=== PATIENT | female | born 1955 | race Caucasian/White ===

== ENCOUNTER 2018-05-06 14:12 | Emergency (ER) ==
[2018-05-06 14:16] VITALS: BP 124/76; TEMP 98.8; BMI 27.3
--- NOTE | 2018-05-06 15:58 | ED.PDOC ---
General ED Provider: Dr. ABDIFATAH RAE Chief Complaint: Tooth Problem Stated Complaint: Pain Rt side of jaw. Patient states she fractured a tooth 2 weeks ago. Now there is swelling to rt lower jaw since last pm. She called dentist and was advised to go to er due to office closed until holiday vacation.has appt to see dentist on tue next week Time Seen by Physician: 15:40 Mode of Arrival: Walk-In Information Source: Patient Exam Limitations: No limitations Primary Care Provider: ESPERANZA NOE Nursing and Triage Documentation Reviewed and Agree: Yes Does patient meet sepsis criteria?: No System Inflammatory Response Syndrome: Not Applicable Sepsis Protocol: For patient's 13 years and over: Temp is 96.8 and below OR 101 and greater Pulse >90 BPM Resp >20/minute Acutely Altered Mental Status Are patient's symptoms suggestive of a new infection, such as: -Pneumonia -Skin, Soft Tissue -Endocarditis -UTI -Bone, Joint Infection -Implantable Device -Acute Abdominal Infection -Wound Infection -Meningitis -Blood Stream Catheter Infection -Unknown EENT Complaint Exam - Dental/Oral Complaint/Exam Mechanism of Injury: No known trauma Onset/Duration: 2 weeks Symptoms Are: Worse Timing: Constant Initial Severity: Moderate Current Severity: Severe Location: Rt sided Jaw Character: Reports: Aching Aggravating: Reports: Cold, Chewing Alleviating: Reports: None Associated Signs and Symptoms: Reports: Swelling. Denies: Discharge, Fever, Foul odor, Foul taste in mouth Related History: Denies: Similar episode Cardiac Risk Factors: Reports: None Dental/Oral Surgical History: Reports: None Tooth Findings: Present: Percussion tenderness, Dental fracture Cervical Lymphadenopathy Present: No Facial Swelling Present: Yes Bleeding Present: No Oropharynx Findings: Absent: Clots, Active bleeding Septal Hematoma: No Foreign Body Present: No Drooling Present: No Asymmetrical Tonsillar Swelling Present: No Uvula Midline: Yes Isaura-tonsillar Fluctuence: No Trismus Present: No Palatal Petechiae Present: No Scarlatinaform Rash Present: No Lesions: Absent: Lip, Buccal Mucosa, Pharynx Exanthem: Absent: Lip, Buccal Mucosa, Pharynx Vesicles: Absent: Lip, Buccal Mucosa, Pharynx Differential Diagnoses: Dental Abcess, Odontogenic Pain Review of Systems - Review Of Systems Constitutional: Reports: No symptoms Eyes: Reports: No symptoms Ears, Nose, Mouth, Throat: Reports: Mouth pain Respiratory: Reports: No symptoms Cardiac: Reports: No symptoms GI: Reports: No symptoms : Reports: No symptoms Musculoskeletal: Reports: No symptoms Skin: Reports: No symptoms Neurological: Reports: No symptoms Endocrine: Reports: No symptoms Hematologic/Lymphatic: Reports: No symptoms All Other Systems: Reviewed and Negative Past Medical History - Past Medical History Previously Healthy: Yes Endocrine: Reports: DM 2 Cardiovascular: Reports: None, Hypertension Respiratory: Reports: None Hematological: Reports: None Gastrointestinal: Reports: None Genitourinary: Reports: None Neuro/Psych: Reports: None Musculoskeletal: Reports: None Cancer: Reports: None Last Menstrual Period: menopause - Surgical History General Surgical History: Reports: None - Family History Family History: Reports: None - Social History Smoking Status: Former smoker Hx Substance Use: No Alcohol Screening: None Lives: With family Physical Exam - Physical Exam Appearance: Well-appearing Ill-appearing: None Pain Distress: Moderate Eyes: ESTHER, EOMI, Conjunctiva clear ENT: Ears normal, Nose normal, Oropharynx normal Neck: Supple Respiratory: Airway patent, Breath sounds clear, Breath sounds equal, Respirations nonlabored Cardiovascular: RRR, Pulses normal, No rub, No murmur GI/: Soft, Nontender, No masses, Bowel sounds normal, No Organomegaly Musculoskeletal: Normal strength, ROM intact, No edema, No calf tenderness Skin: Warm, Dry, Normal color Neurological: Sensation intact, Motor intact, Reflexes intact, Cranial nerves intact, Alert, Oriented Psychiatric: Affect appropriate, Mood appropriate Critical Care Note - Critical Care Note Total Time (mins): 0 Course - Course Vital Signs: Temp Pulse Resp BP Pulse Ox 05/06/18 14:12 98.8 F 78 16 124/76 95 Departure - Departure Time of Disposition: 14:10 Disposition: HOME SELF-CARE Discharge Problem: Dental abscess Instructions: Dental Abscess (ED) Condition: Fair Pt referred to PMD for follow-up: Yes (1 wk) IPMP verified?: No Additional Instructions: take meds for pain ice pack warm moist heat return if worsens Prescriptions: Hydrocodone/Acetaminophen [[place] 5-325 Tablet] 1 - 2 tab PO Q6HR PRN #20 tablet PRN Reason: dental pain Clindamycin HCl 300 mg PO QID #28 capsule Allergies/Adverse Reactions: Allergies Penicillins Adverse Reaction (Verified 05/06/18 14:18) Home Medications: Ambulatory Orders Clindamycin HCl 300 mg PO QID #28 capsule 05/06/18 Hydrocodone/Acetaminophen [[place] 5-325 Tablet] 1 - 2 tab PO Q6HR PRN #20 tablet 05/06/18 Lisinopril 10 mg PO DAILY 05/06/18 Metformin HCl 1,000 mg PO BID 05/06/18 Disposition Discussed With: Patient
== END 2018-05-06 16:10 | disposition home or self-care (01) ==
LOC: ED 14:12
DX: K08.89 Other specified disorders of teeth and supporting structures (principal); K04.7 Periapical abscess without sinus; S02.5XXA Fracture of tooth (traumatic), initial encounter for closed fracture
CPT/HCPCS: 99282